=== PATIENT | male | born 1960 | race Caucasian/White ===

== ENCOUNTER 2023-07-15 23:39 | Emergency (ER) | payer OTHER ==
[2023-07-15 23:46] VITALS: BP 118/70; PULSE 78; RESP 16; TEMP 98; BMI 22.3
[2023-07-16] MEDS ORDERED: ACETAMINOPHEN 1000 MG/100 ML BAG IVPB ONE (00:54)
[2023-07-16] MEDS ORDERED: MECLIZINE HCL 25 MG TABLET (FP) PO ONE (00:54)
[2023-07-16] MEDS ORDERED: SODIUM CHLORIDE 0.9% 500 ML INFUS.BAG IV ONE (00:54)
[2023-07-16] MEDS ORDERED: MECLIZINE HCL 25 MG TABLET (FP) ONE (02:19)
[2023-07-16] MEDS ORDERED: ACETAMINOPHEN INJECTION 100 ML IVPB ONE (02:19)
[2023-07-16 02:31] LABS: BASO % 0.6 % (0-2.0); EOS % 1.1 % (0-4.5); HEMATOCRIT 41.7 % (35.4-49); HEMOGLOBIN 14.5 GM/dL (11.7-16.9); LYMPH % 11.8 % (8-40); MCH 30.7 pg (25.7-33.7); MCHC 34.9 g/dl (32.0-35.9); MEAN CELL VOLUME 88.2 fl (80-96); MEAN PLT VOLUME 8.4 fl (7.5-11.1); MONO % 11.7 % (3.8-10.2); NEUT % 74.8 % (42.8-82.8); PLATELET COUNT 189 10^3/uL (134-434); RBC 4.73 M/mm3 (4.00-5.60); RDW 13.4 % (11.9-15.9); WHITE BLOOD COUNT 9.6 K/mm3 (4.0-10.0)
[2023-07-16 02:37] LABS: INR 1.03 (0.83-1.09)
[2023-07-16 02:39] LABS: ACTIVATED PTT 29.9 SECONDS (25.2-36.5)
[2023-07-16 02:49] LABS: POTASSIUM 3.6 mmol/L (3.5-5.1)
[2023-07-16 02:51] LABS: CALCIUM 8.8 mg/dL (8.5-10.1)
[2023-07-16 02:52] LABS: ALBUMIN 3.7 g/dl (3.4-5.0); BLOOD UREA NITROGEN 15.9 mg/dL (7-18); MAGNESIUM 1.9 mg/dL (1.8-2.4)
[2023-07-16 02:55] LABS: CREATININE 0.7 mg/dL (0.55-1.3)
[2023-07-16 02:56] LABS: BILIRUBIN,TOTAL 0.5 mg/dL (0.2-1); TOT PROT 6.6 g/dl (6.4-8.2)
[2023-07-16] MEDS ORDERED: DEXAMETHASONE 4 MG TABLET (FP) PO ONE (04:07)
[2023-07-16] MEDS ORDERED: DEXAMETHASONE 4 MG TABLET (FP) ONE (04:19)
== END 2023-07-16 04:35 | disposition home or self-care (01) ==
LOC: JER 23:39
PROC: 3E033NZ Introduction of Analgesics, Hypnotics, Sedatives into Peripheral Vein, Percutaneous Approach (ICD-10-PCS; principal; 2023-07-16)
DX: R42 Dizziness and giddiness (principal); R53.83 Other fatigue; U07.1 COVID-19
CPT/HCPCS: 0241U-QW; 36415; 80053; 83735; 84484; 85025; 85610; 85730; 93005; 93010; 99284-25